=== PATIENT | male | born 1990 | race Caucasian/White ===

== ENCOUNTER 2016-05-03 09:47 | Emergency (ER) | payer OTHER ==
[~2016-05-03] VITALS: Ht 185.4 cm; Wt 94.1 kg
[~2016-05-03 09:47] MED LIST: CLC100 PO; FLX10 PO; LRTUNK PO
[2016-05-03 09:53] VITALS: TEMP 36.9; Ht 185.4 cm; Wt 94.1 kg
[2016-05-03] MEDS ORDERED: MECLIZINE HCL 25 MG TAB PO STA (10:28)
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
[2016-05-03] MEDS ORDERED: MECL1TAB42 PO (11:28)
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
[2016-05-03 12:09] VITALS: BP 156/90; PULSE 121; O2SAT 97
== END 2016-05-03 12:11 | disposition home or self-care (01) ==
LOC: C.EDB 09:51 → C.EDA 12:11
DX: S09.90XA Unspecified injury of head, initial encounter (principal); R42 Dizziness and giddiness; Z87.891 Personal history of nicotine dependence; V48.0XXA Car driver injured in noncollision transport accident in nontraffic accident, initial encounter